=== PATIENT | female | born 1970 ===

== ENCOUNTER 2024-11-06 11:15 | Inpatient (IN) | payer OTHER ==
[~2024-11-06] VITALS: Ht 154.9 cm; Wt 77.1 kg
[2024-11-06 13:59] VITALS: BP 101/60
[2024-11-12] MEDS ORDERED: CEFOXITIN SODIUM 2,000 MG VIAL IV ONE (12:23)
[2024-11-12] MEDS ORDERED: POVIDONE-IODINE 118 ML BOTT TOP ONE (13:34)
[2024-11-12] MEDS ORDERED: CHLORHEXIDINE GLUCONATE 120 ML BOTTLE TOP ONE (13:34)
[2024-11-12] MEDS ORDERED: SUGAMMADEX SODIUM 200 MG/2 ML VIAL IV ONE (16:38)
[2024-11-12] MEDS ORDERED: HEMOSTATIC MATRIX WITH THROMBIN KIT TOP ONE (16:40)
[2024-11-12] MEDS ORDERED: HEMOSTATIC MATRIX 1 KIT KIT TOP ONE (16:46)
[2024-11-12] MEDS ORDERED: KETOROLAC TROMETHAMINE 60 MG VIAL IM STA (17:59)
[2024-11-12] MEDS ORDERED: RINGERS SOLUTION,LACTATED 1,000 ML IV SCH (18:00)
[2024-11-12] MEDS ORDERED: MORPHINE SULFATE 4 MG/ML CARTRIDGE IV PRN (18:15)
[2024-11-12] MEDS ORDERED: MORPHINE SULFATE 2 MG/ML CARTRIDGE IV ONE (18:45)
[2024-11-12] MEDS ORDERED: KETOROLAC TROMETHAMINE 60 MG VIAL IM ONE (21:39)
[2024-11-13 00:21] LABS: BASO % 0.1 % (0.1-1.2); HEMATOCRIT 35.1 % (34.1-44.9); HEMOGLOBIN 11.3 g/dL (11.2-15.7); LYMPH # 0.81 (1.18-3.74); LYMPH % 5.6 % (19.3-53.1); MEAN CORPUSCULAR HEMOGLOBIN 26.4 pg (25.6-32.2); MONO # 0.84 (0.24-0.82); MONO % 5.8 % (4.7-12.5); NEUT # 12.75 (1.56-6.13); NEUT % 88.2 % (34.0-71.1); PLATELET COUNT 286 K/uL (163-369); RED BLOOD COUNT 4.28 M/uL (3.93-5.22); RED CELL DISTRIBUTION WIDTH 14.3 % (11.6-14.4)
[2024-11-13 02:59] VITALS: BP 101/60
[2024-11-13 08:53] VITALS: BP 104/64
[2024-11-13] MEDS ORDERED: ACETAMINOPHEN WITH CODEINE 1 UDTAB TABLET PO PRN (09:00)
[2024-11-13 16:00] VITALS: BP 103/62
[2024-11-14 01:03] VITALS: BP 97/65
[2024-11-14 09:38] VITALS: BP 105/67
[2024-11-14 16:27] VITALS: BP 117/71
[2024-11-15 01:29] VITALS: BP 102/63
[2024-11-15 05:46] VITALS: BP 119/76
[2024-11-15 11:53] VITALS: BP 115/80
== END 2024-11-15 11:47 | disposition home or self-care (01) | DRG 743 ==
LOC: SURH 11-12 07:00 → O/R 11-12 11:25 → OB/GYN 11-12 18:22
PROVIDERS: ADMIT Obstetrics & Gynecology; ATTEND Obstetrics & Gynecology
PROC: 0UT70ZZ Resection of Bilateral Fallopian Tubes, Open Approach (ICD-10-PCS; 2024-11-12)
PROC: 0UT90ZZ Resection of Uterus, Open Approach (ICD-10-PCS; principal; 2024-11-12 07:00)
DX: D25.1 Intramural leiomyoma of uterus (principal); N80.03 Adenomyosis of the uterus